=== PATIENT | female | born 1960 | race African-American/Black ===

== ENCOUNTER 2024-07-25 14:55 | Emergency (ER) | payer MEDICAID, OTHER ==
[~2024-07-25] VITALS: Ht 167.6 cm; Wt 105.4 kg
[2024-07-25 16:03] VITALS: BP 147/81; PULSE 90; RESP 16; TEMP 98.2; O2SAT 99
--- NOTE | 2024-07-25 16:21 | ED.PDOC ---
History of Present Illness(SKN HPI Comments a 63 YEAR OLD FEMALE PRESENTS TO THE ED WITH CHIEF COMPLAINT OF ABSCESS. PATIENT REPORTS THAT SHE HAS BEEN EXPERIENCING RIGHT INDEX FINGER SWELLING WITH ASSOCIATED PAIN FOR THE PAST 5 DAYS. PATIENT RELAYS THAT HER SWELLING WAS SPONTANEOUS WITH NO REASON FOR OCCURRING. PATIENT DENIES ANY CHEST PAIN, SOB, DIZZINESS, NAUSEA, VOMITING, NUMBNESS, AND WEAKNESS. NO OTHER SYMPTOMS REP[ORTED AT THIS TIME OF CARE. Chief Complaint: Abscess Time Seen by MD: 16:16 History of Present Illness: Nurses Notes, Medications, Allergies Allergies: Coded Allergies: NO KNOWN ALLERGIES (Unverified , 07/25/24) Home Meds Active Scripts Cephalexin Monohydrate (Cephalexin) 500 Mg Cap, 1 CAP PO QID, #28 CAP Prov:ZACHARIAH WILHELM 07/25/24 Information Source: Patient Mode of Arrival: Ambulatory Severity: Moderate Timing: Days Duration: Since onset Prehospital treatment: None Location: Hand Mechanism: Spontaneous Onset Object: None Condition of Object: None Retained Foreign Body: Unknown Wound Type: None Immunization Status of Animal: Unknown Associated Signs and Symptoms: Redness, Swelling Past Medical History PAST MEDICAL HISTORY: Denies Surgical History: Denies all surgeries INTERLOCKING TOWER OPERATOR History: No Pertinent INTERLOCKING TOWER OPERATOR History Family History Family History: Reviewed,noncontributory to illness Social History Smoker: Non-Smoker Alcohol: Denies ETOH Use Drugs: Denies Drug Use Lives In: Home Constitutional: denies: chills, diaphoresis, fatigue, fever, malaise, sweats, weakness, others EENTM: denies: blurred vision, double vision, ear bleeding, ear discharge, ear drainage, ear pain, ear ringing, eye pain, eye redness, hearing loss, mouth pain, mouth swelling, nasal discharge, nose bleeding, nose congestion, nose pain, photophobia, tearing, throat pain, throat swelling, voice changes, others Respiratory: denies: cough, hemoptysis, orthopnea, SOB at rest, shortness of breath, SOB with excertion, stridor, wheezing, others Cardiovascular: denies: chest pain, dizzy spells, diaphoresis, Dyspnea on exertion, edema, irregular heart beat, left arm pain, lightheadedness, palpitations, PND, syncope, others Gastrointestinal: denies: abdomen distended, abdominal pain, blood streaked bowels, constipated, diarrhea, dysphagia, difficulty swallowing, hematemesis, melena, nausea, poor appetite, poor fluid intake, rectal bleeding, rectal pain, vomiting, others Genitourinary: denies: abnormal vagina bleeding, burning, dyspareunia, dysuria, flank pain, frequency, hematuria, incontinence, pain, , vagina discharge, urgency, others Neurological: denies: dizziness, fainting, headache, left sided numbness, left sided weakness, numbness, paresthesia, pre-existing deficit, right sided numbness, right sided weakness, seizure, speech problems, tingling, tremors, weakness, others Musculoskeletal: denies: back pain, gout, joint pain, joint swelling, muscle pain, muscle stiffness, neck pain, others Integumetry: reports: others (RIGHT 2ND FINGER SWOLLEN, PAINFUL, AND RED); denies: bruises, change in color, change in hair/nails, dryness, laceration, lesions, lumps, rash, wounds Allergic/Immunocompromised: denies: Difficulty Healing, Frequent Infections, Hives, Itching, others Hematologic/Lymphatic: denies: anemia, blood clots, easy bleeding, easy bruising, swollen glands, others Endocrine: denies: excessive hunger, excessive sweating, excessive thirst, excessive urination, flushing, intolerance to cold, intolerance to heat, unexplained weight gain, unexplained weight loss, others Psychiatric: denies: anxiety, bipolar disorder, depression, hopeless, panic disorder, schizophrenia, sleepless, suicidal, others All Other Systems: Reviewed and Negative Physical Exam General Appearance: No Apparent Distress, Normal HEENT: Normal ENT Inspection, Pharynx Normal, TMs Normal Neck: Full Range of Motion, Non-Tender, Normal, Normal Inspection Respiratory: Chest Non-Tender, Lungs Clear, No Accessory Muscle Use, No Respiratory Distress, Normal Breath Sounds Cardiovascular: No Edema, No JVD, No Murmur, No Gallop, Normal Peripheral Pulses, Regular Rate/Rhythm Breast Exam: Deferred Gastrointestinal: No Organomegaly, Non Tender, No Pulsatile Mass, Normal Bowel Sounds, Soft Genitalia: Deferred Pelvic: Deferred Rectal: Deferred Extremities: No calf tenderness, Normal capillary refill, Normal range of motion, No pedal edema, Tender (WITH BLISTER WOUND AND ABSCESS ON RIGHT INDEX FINGER, NO BONY TENDERNESS AND DEFORMITY. ) Musculoskeletal : Apperance: Normal Neurologic: Alert, cryptographic center specialist II-XII nml as Tested, No Motor Deficits, Normal Affect, Normal Mood, No Sensory Deficits Cerebellar Function: Normal Reflexes: Normal Skin: Dry, Warm, Wounds (A LARGE BLISTER WOUND WITH ABSCESS ON RIGHT INDEX FINGER, NO BLEEDING AND FB. NEUROVASCULAR INTACT, NORMAL ROM. ) Peripheral Pulses: 2+ carotid (R), 2+ carotid (L), 2+ Radial (R), 2+ Radial (L) Lymphatic: No Adenopathy Was a procedure done? Was a procedure done?: Yes Sedation Sedation?: No Incision and Drainage Incision and Drainage: Abscess Location RIGHT INDEX FINGER Anesthetic: Lidocaine (10CC) Preparation: Saline Incision and Wound: Pus, Blood, Amount, Irrigated Informed consent obtained: No Risks/benefits/alt described: Yes UTO Consent 10CCS OF PURULENT DRAINAGE NOTED TO HAVE BEEN DRAINED FROM RIGHT INDEX FINGER. Differential Diagnosis (INTG) Differential Diagnosis: Cellulitis Differential Diagnosis: Abscess, Other (BLISTER OF RIGHT INDEX FINGER ) X-Ray, Labs, Meds, VS Vital Signs Date Time Temp Pulse Resp B/P (MAP) Pulse Ox O2 Delivery O2 Flow Rate FiO2 07/25/24 16:03 90 16 99 Room Air 07/25/24 16:03 98.2 90 16 147/81 (103) 99 98.2 07/25/24 15:56 98.3 91 16 155/78 (103) 99 98.3 Current Medications Medications (Trade) Dose Ordered Sig/[place]ley Route Start Time Stop Time Status Last Admin Ceftriaxone Sodium (Rocephin) 1,000 mg ONCE ONCE IM 07/25/24 16:15 07/25/24 16:16 DC 07/25/24 16:40 X-Ray, Labs, Meds, VS Comment EXTERNAL MEDICAL RECORDS REVIEWED: [NONE] INDEPENDENT HISTORIANS: [NONE] SOCIAL DETERMINANTS OF HEALTH: [NONE] LABS ORDERED: NONE REVIEWED AND INTERPRETED RESULTS: NONE IMAGING ORDERED: NONE TREATMENTS ORDERED: ROCEPHIN 1GM IM PROCEDURES PERFORMED: I&D OF RIGHT INDEX FINGER. CRITICAL CARE TIME: NONE I HAVE DISCUSSED THE PATIENT WITH THE ATTENDING PHYSICIAN DR. NUÑEZ AND HE AGREES WITH THE PATIENT'S PLAN OF CARE AND DISPOSITION. BASED ON HISTORY OF PRESENT ILLNESS, AND PHYSICAL EXAM, PATIENT WILL BE DISCHARGED HOME. DISCUSSED PLAN FOR DISCHARGE HOME WITH RX [facility]. MEDICATION WARNINGS GIVEN. SHARED DECISION MAKING: DISCUSSED WITH PATIENT THAT THEIR WORKUP WAS NORMAL. PATIENT INSTRUCTED TO FOLLOW UP WITH PRIMARY CARE PROVIDER IN 1-2 DAYS FOR RE- EVALUATION OF SYMPTOMS. PATIENT VERBALIZES UNDERSTANDING TO RETURN TO ED FOR NEW OR WORSENING SYMPTOMS OR IF FOLLOW UP WITH PCP CANNOT BE OBTAINED. PATIENT FEELS COMFORTABLE GOING HOME AT THIS TIME. ALL QUESTIONS ADDRESSED AT TIME OF DISCHARGE. Time of 1ST Reevaluation: 17:12 Reevaluation 1ST: Improved Patient Education/Counseling: Diagnosis, Treatment, Need For Follow Up Family Education/Counseling: Diagnosis, Treatment, No Family Present Medical Screening: No EMC Exist At This Time Departure 1 Departure Time of Disposition: 17:12 Impression: Primary Impression: Infected blister of right middle finger Additional Impression: Abscess of finger of right hand Disposition: 01 HOME / SELF CARE / HOMELESS Condition: Stable Additional Instructions: FOLLOW-UP WITH PCP IN 1 TO 2 DAYS. TAKE MEDICATIONS PRESCRIBED. RETURN TO ED FOR ANY NEW OR WORSENING SYMPTOMS. e-Prescriptions Cephalexin Monohydrate (Cephalexin) 500 Mg Cap 1 CAP PO QID, #28 CAP Prov: ZACHARIAH WILHELM 07/25/24 Discharged With: Self Critical Care Note Critical Care Time?: No Stability Stability form required: No Heart Score Heart Score: Heart Score Response (Comments) Value History N/A 0 EKG N/A 0 Age N/A 0 Risk Factors N/A 0 Troponin N/A 0 Total 0 I personally scribed for ZACHARIAH WILHELM ([email or web address]) on 07/25/24 at 16:21. Electronically submitted by Sanya Coates ([email or web address]). I personally scribed for ZACHARIAH WILHELM ([email or web address]) on 07/25/24 at 16:41. Electronically submitted by Sanya Coates ([email or web address]). ZACHARIAH WILHELM July 25, 2024 16:21
[2024-07-25] MEDS: LIDOCAINE 1% HCL (LOCAL ANESTH.) INJ 20ML MDV IJ ONE (16:40)
[2024-07-25] MEDS: cefTRIAXone SOD 1,000 MG VL IM ONE (16:40)
[2024-07-25] MEDS ORDERED: CEPH500C PO (17:06)
== END 2024-07-25 17:16 | disposition home or self-care (01) ==
LOC: ER 14:59
DX: S60.420A Blister (nonthermal) of right index finger, initial encounter (principal); L02.511 Cutaneous abscess of right hand; Z79.899 Other long term (current) drug therapy; X58.XXXA Exposure to other specified factors, initial encounter; Y93.89 Activity, other specified; Y92.89 Other specified places as the place of occurrence of the external cause; Y99.8 Other external cause status
CPT/HCPCS: 26010; 96372; 99283; J0696; J2003